=== PATIENT | female | born 2000 | race African-American/Black ===

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

== ENCOUNTER 2024-10-04 03:48 | Emergency (ER) | payer MEDICAID ==
[~2024-10-04] VITALS: Ht 157.5 cm; Wt 62.0 kg
[2024-10-04 03:50] VITALS: TEMP 36.7; O2SAT 100
[2024-10-04] MEDS ORDERED: AMOX1TAB16 MT (04:14)
[2024-10-04] MEDS: KETOROLAC 15MG/ML VIAL IM ONE (04:38)
[2024-10-04 05:14] VITALS: BP 111/78; PULSE 69; RESP 15; O2SAT 100
== END 2024-10-04 05:16 | disposition home or self-care (01) ==
LOC: ER 03:48
DX: K04.7 Periapical abscess without sinus (principal); K02.9 Dental caries, unspecified
CPT/HCPCS: 99283; 81025; 96372; J1885